=== PATIENT | male | born 1950 | race Caucasian/White ===

== ENCOUNTER 2020-10-04 09:00 | Inpatient (IN) ==
[2020-10-04 09:48] LABS: Albumin 2.8 G/DL (3.4-5.0); Bilirubin,Total 1.1 MG/DL (0.2-1.0); Calcium 8.2 MG/DL (8.5-10.1); Osmolality,Calculated 270.7 MOS/KG (273-304); Potassium 3.6 MMOL/L (3.5-5.1); Total Protein 6.7 G/DL (6.4-8.2)
[2020-10-04 10:09] LABS: Basophils % 0.2 % (0.0-0.8); Eosinophils % 0.1 % (0.00-10.9); Hemoglobin 13.2 GM/DL (14.0-18.0); Immature Granulocytes % 1.4 %; Immature Granulocytes Absolute 0.18 #; Lymphocytes # 1.7 10*3/uL (1.4-4.0); Lymphocytes % 13.2 % (21.2-54.2); Mean Corpuscular HGB Conc 33.8 GM/DL (32-36); Mean Platelet Volume 10.3 FL (9.6-12.0); Neutrophils % 75.1 % (38.7-73.9); Platelet Count 146 T/CUMM (130-400); Red Cell Distribution Width 13.4 % (9.3-17.3); White Blood Count 12.8 T/CUMM (4-12)
[2020-10-04 10:19] LABS: Free T4 (Free Thyroxine) 1.24 NG/DL (0.76-1.46); Thyroid Stimulating Hormone 7.9 uIU/ml (0.358-3.74)
[2020-10-04 10:42] LABS: Bilirubin,Urine Negative (Negative); Blood, Urine Small mg/dL (Negative); Glucose,Urine (UA) >=500 mg/dL (Negative); Hyaline Casts,Urine 4 /LPF (0-3); Ketones,Urine Negative (Negative); Mucus,Urine Occasional /LPF (Occasional); Nitrite,Urine Negative (Negative); Protein,Urine Negative; RBC,Urine 9 /HPF (0-4); Squamous Epithelial Cell,Urine Few /HPF (0-10); Urine Appearance Slightly Hazy (Clear); Urine Color Yellow (Yellow); Urine Specific Gravity 1.012 (1.001-1.035); Urine Urobilinogen < 2.0 EU/DL (0.2-1.0); WBC,Urine 6 /HPF (0-6)
[2020-10-04] MEDS ORDERED: cefTRIAXone 1,000 MG in SODIUM CHLORIDE 0.9% 100 ML IV STA (11:22)
[2020-10-04] MEDS ORDERED: guaiFENesin/DM ER 600-30 MG TABLET PO PRN (11:54)
[2020-10-04] MEDS ORDERED: ACETAMINOPHEN 325 MG TABLET PO PRN (11:54)
[2020-10-04] MEDS ORDERED: ONDANSETRON 4 MG/2 ML VIAL IV PRN (11:54)
[2020-10-04] MEDS ORDERED: GLUCAGON 1 MG VIAL IM PRN (11:54)
[2020-10-04] MEDS ORDERED: DEXTROSE 50% 25 GM/50 ML VIAL IV PRN (11:54)
[2020-10-04] MEDS ORDERED: chlordiazePOXIDE 10 MG CAPSULE PO PRN (12:10)
[2020-10-04] MEDS ORDERED: ENOXAPARIN 40 MG/0.4 ML SYRINGE SUBCUT SCH (12:30)
[2020-10-04 12:32] LABS: Folate 20.2 NG/ML (5.38-24.0)
[2020-10-04] MEDS ORDERED: MAGNESIUM SULF RIDER 2 GM in PREMIX 1 EACH IV PRN (12:56)
[2020-10-04] MEDS ORDERED: MAGNESIUM SULF RIDER 4 GM in PREMIX 1 EACH IV PRN (12:56)
[2020-10-04] MEDS ORDERED: MAGNESIUM SULF RIDER 2 GM in PREMIX 1 EACH IV STA (13:10)
[2020-10-04] MEDS: ALBUTEROL/IPRATROPIUM 3 ML NEB RESP TX SCH (13:50)
[2020-10-04] MEDS: CHOLECALCIFEROL 1,000 UNIT TABLET PO SCH (14:51)
[2020-10-04] MEDS: MULTIVITAMIN (BEROCCA) TABLET PO SCH (14:52)
[2020-10-04] MEDS: THIAMINE 100 MG TABLET PO SCH (14:52)
[2020-10-04] MEDS: FOLIC ACID 1 MG TABLET PO SCH (14:52)
[2020-10-04] MEDS: NICOTINE 21 MG/24 HR PATCH TRANSDERM PRN (14:57)
[2020-10-04] MEDS: SODIUM CHLORIDE 0.9% 1,000 ML IV SCH (15:21)
[2020-10-04] MEDS: INSULIN LISPRO 100 UNIT/ML SUBCUT SCH ×2 (17:14→20:06)
[2020-10-05] MEDS: traZODone 50 MG TABLET PO PRN ×2 (00:12→21:03)
[2020-10-05] MEDS: SODIUM CHLORIDE 0.9% 1,000 ML IV SCH ×3 (00:14→23:31)
[2020-10-05] MEDS: ALBUTEROL/IPRATROPIUM 3 ML NEB RESP TX SCH ×5 (00:28→19:18)
[2020-10-05 05:57] LABS: Basophils % 0.1 % (0.0-0.8); Eosinophils % 0.3 % (0.00-10.9); Hematocrit 36.6 VOL% (42.0-52.0); Hemoglobin 12.1 GM/DL (14.0-18.0); Immature Granulocytes % 1.2 %; Immature Granulocytes Absolute 0.11 #; Lymphocytes # 1.2 10*3/uL (1.4-4.0); Mean Corpuscular HGB Conc 33.1 GM/DL (32-36); Mean Corpuscular Volume 102.5 FL (87-102); Mean Platelet Volume 10.2 FL (9.6-12.0); Monocytes % 9.6 % (1.7-12.7); Neutrophils % 75.8 % (38.7-73.9); Platelet Count 156 T/CUMM (130-400); Red Blood Count 3.57 MC/CUMM (3.8-5.5); Red Cell Distribution Width 13.7 % (9.3-17.3); White Blood Count 8.9 T/CUMM (4-12)
[2020-10-05 06:16] LABS: Hypochromasia Slight; Microcytosis Slight; Platelet Estimate Adequate
[2020-10-05 06:20] LABS: Albumin 2.5 G/DL (3.4-5.0); Bilirubin,Total 0.7 MG/DL (0.2-1.0); Calcium 7.9 MG/DL (8.5-10.1); Osmolality,Calculated 275.1 MOS/KG (273-304); Potassium 3.9 MMOL/L (3.5-5.1); Risk Ratio 10.11; Total Protein 6.2 G/DL (6.4-8.2); VLDL CHOLESTEROL 143.2 MG/DL
[2020-10-05] MEDS ORDERED: ALBUTEROL 2.5 MG/3 ML NEB RESP TX ONE (07:32)
[2020-10-05] MEDS: LEVOTHYROXINE 200 MCG TABLET PO SCH (08:06)
[2020-10-05] MEDS ORDERED: PANTOPRAZOLE 40 MG TABLET PO SCH (09:00)
[2020-10-05] MEDS: INSULIN LISPRO 100 UNIT/ML SUBCUT SCH ×4 (09:40→21:04)
[2020-10-05] MEDS: CHOLECALCIFEROL 1,000 UNIT TABLET PO SCH (09:41)
[2020-10-05] MEDS: ATORVASTATIN 40 MG TABLET PO SCH (09:42)
[2020-10-05] MEDS: FENOFIBRATE 160 MG TABLET PO SCH (09:42)
[2020-10-05] MEDS: THIAMINE 100 MG TABLET PO SCH (09:42)
[2020-10-05] MEDS: MULTIVITAMIN (BEROCCA) TABLET PO SCH (09:42)
[2020-10-05] MEDS: FOLIC ACID 1 MG TABLET PO SCH (09:42)
[2020-10-05] MEDS: methylPREDNISolone SOD SUC 40 MG/1 ML VIAL IV SCH ×3 (09:46→23:32)
[2020-10-05] MEDS ORDERED: SODIUM CHLORIDE 0.9% 1,000 ML IV SCH (10:00)
[2020-10-05] MEDS: AZITHROMYCIN 250 MG TABLET PO SCH (10:04)
[2020-10-05] MEDS: CLOPIDOGREL 75 MG TABLET PO SCH (10:05)
[2020-10-05] MEDS: ASPIRIN EC 81 MG TABLET PO SCH (10:05)
[2020-10-05] MEDS: ENOXAPARIN 100 MG/ML SYRINGE SUBCUT SCH ×2 (11:00→21:04)
[2020-10-05] MEDS: NICOTINE 21 MG/24 HR PATCH TRANSDERM PRN (17:51)
[2020-10-05] MEDS: PANTOPRAZOLE 40 MG TABLET PO SCH (21:03)
[2020-10-06] MEDS: ALBUTEROL/IPRATROPIUM 3 ML NEB RESP TX SCH ×5 (00:45→19:23)
[2020-10-06] MEDS: LEVOTHYROXINE 200 MCG TABLET PO SCH (06:13)
[2020-10-06 07:05] LABS: Basophils % 0.1 % (0.0-0.8); Hematocrit 32.6 VOL% (42.0-52.0); Immature Granulocytes % 1.2 %; Immature Granulocytes Absolute 0.15 #; Lymphocytes # 0.6 10*3/uL (1.4-4.0); Mean Corpuscular HGB Conc 33.7 GM/DL (32-36); Mean Corpuscular Volume 101.6 FL (87-102); Mean Platelet Volume 10.4 FL (9.6-12.0); Monocytes % 3.3 % (1.7-12.7); Neutrophils % 90.4 % (38.7-73.9); Platelet Count 145 T/CUMM (130-400); Red Blood Count 3.21 MC/CUMM (3.8-5.5); Red Cell Distribution Width 13.2 % (9.3-17.3); White Blood Count 12.3 T/CUMM (4-12)
[2020-10-06 07:25] LABS: Albumin 2.6 G/DL (3.4-5.0); Bilirubin,Total 0.6 MG/DL (0.2-1.0); Calcium 7.8 MG/DL (8.5-10.1); Osmolality,Calculated 281.1 MOS/KG (273-304); Potassium 4.3 MMOL/L (3.5-5.1); Total Protein 6.3 G/DL (6.4-8.2)
[2020-10-06] MEDS ORDERED: LORazepam 1 MG TABLET PO PRN (07:49)
[2020-10-06] MEDS ORDERED: FLUCONAZOLE 150 MG TABLET PO ONE (09:05)
[2020-10-06] MEDS: THIAMINE 100 MG TABLET PO SCH (10:17)
[2020-10-06] MEDS: LORazepam 1 MG TABLET PO SCH ×3 (10:17→21:12)
[2020-10-06] MEDS: CHOLECALCIFEROL 1,000 UNIT TABLET PO SCH (10:18)
[2020-10-06] MEDS: ATORVASTATIN 40 MG TABLET PO SCH (10:18)
[2020-10-06] MEDS: MULTIVITAMIN (BEROCCA) TABLET PO SCH (10:18)
[2020-10-06] MEDS: PANTOPRAZOLE 40 MG TABLET PO SCH ×2 (10:18→21:12)
[2020-10-06] MEDS: CLOPIDOGREL 75 MG TABLET PO SCH (10:18)
[2020-10-06] MEDS: FENOFIBRATE 160 MG TABLET PO SCH (10:19)
[2020-10-06] MEDS: AZITHROMYCIN 250 MG TABLET PO SCH (10:19)
[2020-10-06] MEDS: ASPIRIN EC 81 MG TABLET PO SCH (10:20)
[2020-10-06] MEDS: FOLIC ACID 1 MG TABLET PO SCH (10:20)
[2020-10-06] MEDS: INSULIN LISPRO 100 UNIT/ML SUBCUT SCH ×4 (10:23→21:12)
[2020-10-06] MEDS: methylPREDNISolone SOD SUC 40 MG/1 ML VIAL IV SCH ×3 (10:25→21:12)
[2020-10-06] MEDS: ENOXAPARIN 100 MG/ML SYRINGE SUBCUT SCH (10:27)
[2020-10-06] MEDS: PIPERACILLIN/TAZOBACTAM 3,375 MG in SODIUM CHLORIDE 0.9% 100 ML IV SCH ×2 (10:48→17:15)
[2020-10-06] MEDS: CLOTRIMAZOLE 1% CREAM 15 GM TUBE TOP SCH ×2 (12:12→21:22)
[2020-10-06] MEDS ORDERED: FUROSEMIDE 40 MG/4 ML VIAL IV ONE (13:32)
[2020-10-06] MEDS ORDERED: FUROSEMIDE 20 MG/2 ML VIAL IV ONE (13:51)
[2020-10-06] MEDS: traZODone 50 MG TABLET PO PRN (21:15)
[2020-10-06] MEDS: NICOTINE 21 MG/24 HR PATCH TRANSDERM PRN (21:18)
[2020-10-07] MEDS: ALBUTEROL/IPRATROPIUM 3 ML NEB RESP TX SCH ×4 (00:15→10:36)
[2020-10-07] MEDS: PIPERACILLIN/TAZOBACTAM 3,375 MG in SODIUM CHLORIDE 0.9% 100 ML IV SCH ×2 (01:48→09:36)
[2020-10-07] MEDS: LEVOTHYROXINE 200 MCG TABLET PO SCH (06:02)
[2020-10-07 06:10] LABS: Basophils % 0.1 % (0.0-0.8); Hematocrit 31.2 VOL% (42.0-52.0); Hemoglobin 10.8 GM/DL (14.0-18.0); Immature Granulocytes % 2.2 %; Immature Granulocytes Absolute 0.33 #; Lymphocytes # 0.6 10*3/uL (1.4-4.0); Lymphocytes % 3.9 % (21.2-54.2); Mean Corpuscular HGB Conc 34.6 GM/DL (32-36); Mean Corpuscular Volume 99.7 FL (87-102); Mean Platelet Volume 10.2 FL (9.6-12.0); Monocytes % 3.6 % (1.7-12.7); Neutrophils % 90.2 % (38.7-73.9); Platelet Count 150 T/CUMM (130-400); Red Blood Count 3.13 MC/CUMM (3.8-5.5); Red Cell Distribution Width 13.2 % (9.3-17.3); White Blood Count 14.9 T/CUMM (4-12)
[2020-10-07 06:33] LABS: Hypochromasia Slight; Lymphocytes 5 % (20-55); Segmented Neutrophils 95 % (50-85); Total Cells Counted 100
[2020-10-07 06:34] LABS: Microcytosis Slight; Platelet Estimate Adequate; Potassium 4.5 MMOL/L (3.5-5.1)
[2020-10-07] MEDS ORDERED: AZITHROMYCIN 250 MG TABLET PO SCH (09:00)
[2020-10-07] MEDS: ASPIRIN EC 81 MG TABLET PO SCH (09:33)
[2020-10-07] MEDS: PANTOPRAZOLE 40 MG TABLET PO SCH (09:33)
[2020-10-07] MEDS: THIAMINE 100 MG TABLET PO SCH (09:33)
[2020-10-07] MEDS: FENOFIBRATE 160 MG TABLET PO SCH (09:33)
[2020-10-07] MEDS: CHOLECALCIFEROL 1,000 UNIT TABLET PO SCH (09:33)
[2020-10-07] MEDS: MULTIVITAMIN (BEROCCA) TABLET PO SCH (09:33)
[2020-10-07] MEDS: LORazepam 1 MG TABLET PO SCH (09:33)
[2020-10-07] MEDS: methylPREDNISolone SOD SUC 40 MG/1 ML VIAL IV SCH (09:34)
[2020-10-07] MEDS: CLOPIDOGREL 75 MG TABLET PO SCH (09:34)
[2020-10-07] MEDS: ATORVASTATIN 40 MG TABLET PO SCH (09:34)
[2020-10-07] MEDS: INSULIN LISPRO 100 UNIT/ML SUBCUT SCH ×2 (09:35→12:27)
[2020-10-07] MEDS: FOLIC ACID 1 MG TABLET PO SCH (09:36)
[2020-10-07] MEDS: CLOTRIMAZOLE 1% CREAM 15 GM TUBE TOP SCH (09:46)
[2020-10-07] MEDS ORDERED: INSULIN GLARGINE 100 UNIT/ML SUBCUT SCH (10:04)
[2020-10-07 11:56] VITALS: BP 145/94
[2020-10-08] MEDS ORDERED: NON-FORMULARY MEDICATION (Magnesium 500 mg Tablet) PO SCH (09:00)
== END 2020-10-07 13:36 | disposition home or self-care (01) | DRG 194 ==
LOC: N.EDINP 09:00 → N.ED 09:00 → N.EDINP 13:44 → N.TELEN 14:20 → SUATTDRO 10-06 10:57
PROVIDERS: ADMIT Internal Medicine; ATTEND Family Medicine

== ENCOUNTER 2020-11-02 16:47 | Inpatient (IN) ==
[2020-11-02 17:45] LABS: Basophils % 0.3 % (0.0-0.8); Eosinophils % 0.7 % (0.00-10.9); Hematocrit 35.2 VOL% (42.0-52.0); Hemoglobin 11.6 GM/DL (14.0-18.0); Immature Granulocytes % 0.8 %; Immature Granulocytes Absolute 0.05 #; Lymphocytes # 1.2 10*3/uL (1.4-4.0); Lymphocytes % 19.2 % (21.2-54.2); Mean Platelet Volume 9.7 FL (9.6-12.0); Monocytes % 13.7 % (1.7-12.7); Neutrophils % 65.3 % (38.7-73.9); Platelet Count 239 T/CUMM (130-400); Red Blood Count 3.45 MC/CUMM (3.8-5.5); Red Cell Distribution Width 15.9 % (9.3-17.3)
[2020-11-02] MEDS ORDERED: ALBUTEROL/IPRATROPIUM 3 ML NEB RESP TX STA (17:45)
[2020-11-02 18:01] LABS: Albumin 3.1 G/DL (3.4-5.0); Bilirubin,Total 0.5 MG/DL (0.2-1.0); Calcium 9.4 MG/DL (8.5-10.1); Osmolality,Calculated 275.7 MOS/KG (273-304); Potassium 3.8 MMOL/L (3.5-5.1); Total Protein 6.4 G/DL (6.4-8.2)
[2020-11-02 18:05] LABS: INR 1.1; PT Patient Result 12.7 SECS (10.5-12.0)
[2020-11-02] MEDS ORDERED: FUROSEMIDE 40 MG/4 ML VIAL IV STA (18:35)
[2020-11-02] MEDS ORDERED: MAGNESIUM SULF RIDER 2 GM/50 ML PREMIX IV STA (19:06)
[2020-11-02] MEDS ORDERED: LORazepam 1 MG TABLET PO PRN (20:49)
[2020-11-02] MEDS ORDERED: GLUCAGON 1 MG VIAL IM PRN (20:51)
[2020-11-02] MEDS ORDERED: DEXTROSE 50% 25 GM/50 ML VIAL IV PRN (20:51)
[2020-11-02] MEDS ORDERED: ACETAMINOPHEN 325 MG TABLET PO PRN (20:52)
[2020-11-02] MEDS ORDERED: ALBUTEROL 2.5 MG/3 ML NEB RESP TX PRN (20:52)
[2020-11-02] MEDS ORDERED: ONDANSETRON 4 MG/2 ML VIAL IV PRN (20:52)
[2020-11-02] MEDS ORDERED: DOCUSATE SODIUM 100 MG CAPSULE PO PRN (20:52)
[2020-11-02] MEDS ORDERED: MORPHINE 4 MG/1 ML VIAL IV PRN (20:52)
[2020-11-02] MEDS ORDERED: MAGNESIUM SULF RIDER 2 GM/50 ML PREMIX IV ONE (20:56)
[2020-11-02] MEDS ORDERED: POTASSIUM CHLORIDE 20 MEQ TABLET PO PRN (21:01)
[2020-11-02] MEDS ORDERED: MAGNESIUM SULF RIDER 4 GM/100 ML PREMIX IV PRN (21:01)
[2020-11-02] MEDS ORDERED: MAGNESIUM SULF RIDER 2 GM/50 ML PREMIX IV PRN (21:01)
[2020-11-02] MEDS ORDERED: LORazepam 2 MG/1 ML VIAL IV PRN (21:32)
[2020-11-02] MEDS ORDERED: NITROGLYCERIN SL 0.4 MG TABLET SL PRN (22:35)
[2020-11-02] MEDS: VANCOMYCIN INJ 1,750 MG in SODIUM CHLORIDE 0.9% 500 ML IV SCH (22:40)
[2020-11-02] MEDS: LORazepam 1 MG TABLET PO SCH (22:41)
[2020-11-02] MEDS: NICOTINE 21 MG/24 HR PATCH TRANSDERM SCH (22:41)
[2020-11-02] MEDS: ALBUTEROL/IPRATROPIUM 3 ML NEB RESP TX SCH (23:40)
[2020-11-03] MEDS: ENOXAPARIN 40 MG/0.4 ML SYRINGE SUBCUT SCH ×2 (00:02→21:00)
[2020-11-03] MEDS: methylPREDNISolone SOD SUC 40 MG/1 ML VIAL IV SCH ×3 (00:06→17:33)
[2020-11-03] MEDS: INSULIN LISPRO 100 UNIT/ML SUBCUT SCH ×5 (00:08→21:00)
[2020-11-03] MEDS: LEVOFLOXACIN INJ 750 MG/150 ML PREMIX IV SCH (01:40)
[2020-11-03] MEDS: ALBUTEROL/IPRATROPIUM 3 ML NEB RESP TX SCH ×6 (02:37→22:45)
[2020-11-03] MEDS: PIPERACILLIN/TAZOBACTAM 3,375 MG in SODIUM CHLORIDE 0.9% 100 ML IV SCH ×3 (03:13→17:32)
[2020-11-03 06:02] LABS: Basophils % 0.2 % (0.0-0.8); Hematocrit 35.8 VOL% (42.0-52.0); Hemoglobin 11.7 GM/DL (14.0-18.0); Immature Granulocytes % 1.3 %; Immature Granulocytes Absolute 0.07 #; Lymphocytes # 0.5 10*3/uL (1.4-4.0); Lymphocytes % 8.7 % (21.2-54.2); Mean Corpuscular HGB Conc 32.7 GM/DL (32-36); Mean Corpuscular Volume 104.1 FL (87-102); Mean Platelet Volume 9.7 FL (9.6-12.0); Monocytes % 3.1 % (1.7-12.7); Neutrophils % 86.7 % (38.7-73.9); Platelet Count 210 T/CUMM (130-400); Red Blood Count 3.44 MC/CUMM (3.8-5.5); Red Cell Distribution Width 15.9 % (9.3-17.3); White Blood Count 5.2 T/CUMM (4-12)
[2020-11-03 06:37] LABS: Calcium 8.9 MG/DL (8.5-10.1); Osmolality,Calculated 279.7 MOS/KG (273-304); Potassium 4.5 MMOL/L (3.5-5.1); Thyroid Stimulating Hormone 1.24 uIU/ml (0.358-3.74)
[2020-11-03] MEDS ORDERED: LEVOTHYROXINE 200 MCG TABLET PO SCH (07:00)
[2020-11-03] MEDS ORDERED: METOPROLOL SUCCINATE XL 25 MG TABLET PO SCH (09:00)
[2020-11-03] MEDS: POTASSIUM CHLORIDE 20 MEQ TABLET PO SCH (09:37)
[2020-11-03] MEDS: FENOFIBRATE 160 MG TABLET PO SCH (09:37)
[2020-11-03] MEDS: MULTIVITAMIN (BEROCCA) TABLET PO SCH (09:37)
[2020-11-03] MEDS: CHOLECALCIFEROL 1,000 UNIT TABLET PO SCH (09:37)
[2020-11-03] MEDS: MAGNESIUM OXIDE 400 MG TABLET PO SCH ×3 (09:37→21:00)
[2020-11-03] MEDS: CLOPIDOGREL 75 MG TABLET PO SCH (09:37)
[2020-11-03] MEDS: ASPIRIN EC 81 MG TABLET PO SCH (09:37)
[2020-11-03] MEDS: NICOTINE 21 MG/24 HR PATCH TRANSDERM SCH (09:38)
[2020-11-03] MEDS: PANTOPRAZOLE 40 MG TABLET PO SCH (09:38)
[2020-11-03] MEDS: THIAMINE 100 MG TABLET PO SCH (09:38)
[2020-11-03] MEDS: LORazepam 1 MG TABLET PO SCH ×3 (09:38→21:00)
[2020-11-03] MEDS ORDERED: FUROSEMIDE 40 MG/4 ML VIAL IV SCH (10:00)
[2020-11-03] MEDS ORDERED: METOPROLOL SUCCINATE XL 25 MG TABLET PO ONE (11:03)
[2020-11-03] MEDS: FOLIC ACID 0.4 MG TABLET PO SCH (12:32)
[2020-11-03] MEDS: VANCOMYCIN INJ 1,750 MG in SODIUM CHLORIDE 0.9% 500 ML IV SCH ×2 (14:00→22:28)
[2020-11-03] MEDS: ATORVASTATIN 40 MG TABLET PO SCH (21:00)
[2020-11-04] MEDS: methylPREDNISolone SOD SUC 40 MG/1 ML VIAL IV SCH ×3 (00:55→17:30)
[2020-11-04] MEDS: LEVOFLOXACIN INJ 750 MG/150 ML PREMIX IV SCH (00:57)
[2020-11-04] MEDS: ALBUTEROL/IPRATROPIUM 3 ML NEB RESP TX SCH ×5 (02:49→23:45)
[2020-11-04] MEDS: PIPERACILLIN/TAZOBACTAM 3,375 MG in SODIUM CHLORIDE 0.9% 100 ML IV SCH ×3 (03:05→17:30)
[2020-11-04 06:26] LABS: Basophils % 0.1 % (0.0-0.8); Hematocrit 31.5 VOL% (42.0-52.0); Hemoglobin 10.4 GM/DL (14.0-18.0); Immature Granulocytes % 1.5 %; Immature Granulocytes Absolute 0.11 #; Lymphocytes # 0.5 10*3/uL (1.4-4.0); Lymphocytes % 6.4 % (21.2-54.2); Mean Corpuscular Volume 102.9 FL (87-102); Mean Platelet Volume 9.6 FL (9.6-12.0); Monocytes % 4.9 % (1.7-12.7); Neutrophils % 87.1 % (38.7-73.9); Platelet Count 205 T/CUMM (130-400); Red Blood Count 3.06 MC/CUMM (3.8-5.5); Red Cell Distribution Width 15.8 % (9.3-17.3); White Blood Count 7.4 T/CUMM (4-12)
[2020-11-04 06:44] LABS: Calcium 8.4 MG/DL (8.5-10.1); Potassium 4.5 MMOL/L (3.5-5.1)
[2020-11-04] MEDS ORDERED: PROMETHAZINE 25 MG/1 ML VIAL IM ONE (07:00)
[2020-11-04] MEDS ORDERED: MEPERIDINE 50 MG/1 ML VIAL IM ONE (07:00)
[2020-11-04] MEDS ORDERED: LIDOCAINE 2% 20 ML VIAL RESP TX ONE (07:30)
[2020-11-04] MEDS ORDERED: LIDOCAINE 1% 20 ML VIAL MISC INJ ONE (07:30)
[2020-11-04] MEDS ORDERED: MIDAZOLAM 2 MG/2 ML VIAL IV ONE (07:30)
[2020-11-04] MEDS ORDERED: LIDOCAINE 2% VISCOUS 100 ML BOTTLE SWISH/SPIT ONE (07:30)
[2020-11-04] MEDS ORDERED: METOPROLOL SUCCINATE XL 50 MG TABLET PO SCH (09:00)
[2020-11-04] MEDS: INSULIN LISPRO 100 UNIT/ML SUBCUT SCH ×4 (10:45→20:58)
[2020-11-04] MEDS: NICOTINE 21 MG/24 HR PATCH TRANSDERM SCH (11:03)
[2020-11-04] MEDS: MULTIVITAMIN (BEROCCA) TABLET PO SCH (11:04)
[2020-11-04] MEDS: ASPIRIN EC 81 MG TABLET PO SCH (11:04)
[2020-11-04] MEDS: PANTOPRAZOLE 40 MG TABLET PO SCH (11:04)
[2020-11-04] MEDS: MAGNESIUM OXIDE 400 MG TABLET PO SCH ×3 (11:04→20:53)
[2020-11-04] MEDS: LEVOTHYROXINE 200 MCG TABLET PO SCH (11:04)
[2020-11-04] MEDS: FENOFIBRATE 160 MG TABLET PO SCH (11:04)
[2020-11-04] MEDS: LORazepam 1 MG TABLET PO SCH ×3 (11:04→20:53)
[2020-11-04] MEDS: FOLIC ACID 0.4 MG TABLET PO SCH (11:04)
[2020-11-04] MEDS: CHOLECALCIFEROL 1,000 UNIT TABLET PO SCH (11:04)
[2020-11-04] MEDS: CLOPIDOGREL 75 MG TABLET PO SCH (11:05)
[2020-11-04] MEDS: THIAMINE 100 MG TABLET PO SCH (11:05)
[2020-11-04] MEDS: METOPROLOL SUCCINATE XL 25 MG TABLET PO SCH (11:05)
[2020-11-04] MEDS: POTASSIUM CHLORIDE 20 MEQ TABLET PO SCH (11:05)
[2020-11-04 12:40] LABS: Anti SS-A Antibodies < 16 EU/ML
[2020-11-04] MEDS: VANCOMYCIN INJ 1,750 MG in SODIUM CHLORIDE 0.9% 500 ML IV SCH ×2 (15:05→22:51)
[2020-11-04] MEDS: ATORVASTATIN 40 MG TABLET PO SCH (20:53)
[2020-11-04] MEDS: ENOXAPARIN 40 MG/0.4 ML SYRINGE SUBCUT SCH (20:56)
[2020-11-05] MEDS: LEVOFLOXACIN INJ 750 MG/150 ML PREMIX IV SCH (00:35)
[2020-11-05] MEDS: methylPREDNISolone SOD SUC 40 MG/1 ML VIAL IV SCH ×3 (00:35→15:42)
[2020-11-05] MEDS: ALBUTEROL/IPRATROPIUM 3 ML NEB RESP TX SCH ×6 (03:05→23:55)
[2020-11-05] MEDS: PIPERACILLIN/TAZOBACTAM 3,375 MG in SODIUM CHLORIDE 0.9% 100 ML IV SCH ×3 (03:27→18:13)
[2020-11-05] MEDS: LEVOTHYROXINE 200 MCG TABLET PO SCH (05:44)
[2020-11-05 06:02] LABS: Basophils % 0.1 % (0.0-0.8); Hematocrit 32.5 VOL% (42.0-52.0); Hemoglobin 10.7 GM/DL (14.0-18.0); Immature Granulocytes % 1.3 %; Immature Granulocytes Absolute 0.12 #; Lymphocytes # 0.4 10*3/uL (1.4-4.0); Lymphocytes % 4.6 % (21.2-54.2); Mean Corpuscular HGB Conc 32.9 GM/DL (32-36); Mean Corpuscular Volume 104.5 FL (87-102); Mean Platelet Volume 9.9 FL (9.6-12.0); Monocytes % 5.5 % (1.7-12.7); Neutrophils % 88.5 % (38.7-73.9); Platelet Count 212 T/CUMM (130-400); Red Blood Count 3.11 MC/CUMM (3.8-5.5); Red Cell Distribution Width 15.7 % (9.3-17.3)
[2020-11-05 06:10] LABS: Calcium 8.6 MG/DL (8.5-10.1); Osmolality,Calculated 281.8 MOS/KG (273-304); Potassium 5.3 MMOL/L (3.5-5.1)
[2020-11-05 07:31] LABS: Band Neutrophils 1 % (0-10); Lymphocytes 7 % (20-55); Segmented Neutrophils 88 % (50-85); Total Cells Counted 100
[2020-11-05 07:32] LABS: Hypochromasia Slight
[2020-11-05 07:33] LABS: Microcytosis 1+; Platelet Estimate Normal
[2020-11-05] MEDS: METOPROLOL SUCCINATE XL 25 MG TABLET PO SCH (08:53)
[2020-11-05] MEDS: CLOPIDOGREL 75 MG TABLET PO SCH (08:53)
[2020-11-05] MEDS: ASPIRIN EC 81 MG TABLET PO SCH (08:53)
[2020-11-05] MEDS: MAGNESIUM OXIDE 400 MG TABLET PO SCH ×3 (08:53→20:52)
[2020-11-05] MEDS: FENOFIBRATE 160 MG TABLET PO SCH (08:53)
[2020-11-05] MEDS: CHOLECALCIFEROL 1,000 UNIT TABLET PO SCH (08:53)
[2020-11-05] MEDS: FOLIC ACID 1 MG TABLET PO SCH (08:53)
[2020-11-05] MEDS: THIAMINE 100 MG TABLET PO SCH (08:53)
[2020-11-05] MEDS: PANTOPRAZOLE 40 MG TABLET PO SCH (08:53)
[2020-11-05] MEDS: MULTIVITAMIN (BEROCCA) TABLET PO SCH (08:53)
[2020-11-05] MEDS: LORazepam 1 MG TABLET PO SCH ×3 (08:53→20:52)
[2020-11-05] MEDS: POTASSIUM CHLORIDE 20 MEQ TABLET PO SCH (08:53)
[2020-11-05] MEDS: NICOTINE 21 MG/24 HR PATCH TRANSDERM SCH (08:54)
[2020-11-05] MEDS: INSULIN LISPRO 100 UNIT/ML SUBCUT SCH ×4 (10:54→20:53)
[2020-11-05] MEDS: FUROSEMIDE 20 MG/2 ML VIAL IV SCH (11:13)
[2020-11-05] MEDS: VANCOMYCIN INJ 1,750 MG in SODIUM CHLORIDE 0.9% 500 ML IV SCH (16:00)
[2020-11-05] MEDS: ATORVASTATIN 40 MG TABLET PO SCH (20:52)
[2020-11-05] MEDS: ENOXAPARIN 40 MG/0.4 ML SYRINGE SUBCUT SCH (20:55)
[2020-11-06] MEDS: LEVOFLOXACIN INJ 750 MG/150 ML PREMIX IV SCH (00:11)
[2020-11-06] MEDS: methylPREDNISolone SOD SUC 40 MG/1 ML VIAL IV SCH ×3 (00:11→15:47)
[2020-11-06] MEDS: PIPERACILLIN/TAZOBACTAM 3,375 MG in SODIUM CHLORIDE 0.9% 100 ML IV SCH ×3 (03:14→18:19)
[2020-11-06] MEDS: ALBUTEROL/IPRATROPIUM 3 ML NEB RESP TX SCH ×6 (03:29→23:50)
[2020-11-06 05:26] LABS: Basophils % 0.1 % (0.0-0.8); Hematocrit 33.9 VOL% (42.0-52.0); Immature Granulocytes Absolute 0.08 #; Lymphocytes # 0.4 10*3/uL (1.4-4.0); Lymphocytes % 4.6 % (21.2-54.2); Mean Corpuscular HGB Conc 32.4 GM/DL (32-36); Monocytes % 6.6 % (1.7-12.7); Neutrophils % 87.7 % (38.7-73.9); Platelet Count 196 T/CUMM (130-400); Red Blood Count 3.23 MC/CUMM (3.8-5.5); Red Cell Distribution Width 15.2 % (9.3-17.3); White Blood Count 8.2 T/CUMM (4-12)
[2020-11-06] MEDS: LEVOTHYROXINE 200 MCG TABLET PO SCH (05:45)
[2020-11-06 06:00] LABS: Calcium 9.2 MG/DL (8.5-10.1); Potassium 5.2 MMOL/L (3.5-5.1)
[2020-11-06 06:18] LABS: Hypochromasia Slight; Lymphocytes 3 % (20-55); Microcytosis 1+; Platelet Estimate Adequate; Segmented Neutrophils 87 % (50-85); Total Cells Counted 100
[2020-11-06] MEDS: MULTIVITAMIN (BEROCCA) TABLET PO SCH (09:12)
[2020-11-06] MEDS: INSULIN LISPRO 100 UNIT/ML SUBCUT SCH ×4 (09:12→20:45)
[2020-11-06] MEDS: NICOTINE 21 MG/24 HR PATCH TRANSDERM SCH (09:12)
[2020-11-06] MEDS: ASPIRIN EC 81 MG TABLET PO SCH (09:12)
[2020-11-06] MEDS: MAGNESIUM OXIDE 400 MG TABLET PO SCH ×3 (09:12→20:45)
[2020-11-06] MEDS: INSULIN GLARGINE 100 UNIT/ML SUBCUT SCH (09:12)
[2020-11-06] MEDS: PANTOPRAZOLE 40 MG TABLET PO SCH (09:13)
[2020-11-06] MEDS: THIAMINE 100 MG TABLET PO SCH (09:13)
[2020-11-06] MEDS: LORazepam 1 MG TABLET PO SCH ×3 (09:13→20:45)
[2020-11-06] MEDS: FOLIC ACID 1 MG TABLET PO SCH (09:13)
[2020-11-06] MEDS: FUROSEMIDE 20 MG/2 ML VIAL IV SCH (09:13)
[2020-11-06] MEDS: CHOLECALCIFEROL 1,000 UNIT TABLET PO SCH (09:13)
[2020-11-06] MEDS: CLOPIDOGREL 75 MG TABLET PO SCH (09:13)
[2020-11-06] MEDS: FENOFIBRATE 160 MG TABLET PO SCH (09:13)
[2020-11-06] MEDS: METOPROLOL SUCCINATE XL 25 MG TABLET PO SCH (09:13)
[2020-11-06] MEDS: VANCOMYCIN INJ 1,750 MG in SODIUM CHLORIDE 0.9% 500 ML IV SCH (13:58)
[2020-11-06] MEDS: ATORVASTATIN 40 MG TABLET PO SCH (20:45)
[2020-11-06] MEDS: ENOXAPARIN 40 MG/0.4 ML SYRINGE SUBCUT SCH (20:45)
[2020-11-07] MEDS: methylPREDNISolone SOD SUC 40 MG/1 ML VIAL IV SCH ×3 (00:34→21:35)
[2020-11-07] MEDS: LEVOFLOXACIN INJ 750 MG/150 ML PREMIX IV SCH ×2 (00:34→23:38)
[2020-11-07] MEDS: PIPERACILLIN/TAZOBACTAM 3,375 MG in SODIUM CHLORIDE 0.9% 100 ML IV SCH ×3 (02:07→17:11)
[2020-11-07] MEDS: ALBUTEROL/IPRATROPIUM 3 ML NEB RESP TX SCH ×5 (03:21→19:20)
[2020-11-07 05:53] LABS: Basophils % 0.1 % (0.0-0.8); Hematocrit 35.6 VOL% (42.0-52.0); Hemoglobin 12.1 GM/DL (14.0-18.0); Immature Granulocytes % 1.4 %; Immature Granulocytes Absolute 0.11 #; Lymphocytes # 0.5 10*3/uL (1.4-4.0); Lymphocytes % 6.1 % (21.2-54.2); Mean Corpuscular Volume 100.6 FL (87-102); Mean Platelet Volume 10.2 FL (9.6-12.0); Monocytes % 7.7 % (1.7-12.7); Neutrophils % 84.7 % (38.7-73.9); Platelet Count 209 T/CUMM (130-400); Red Blood Count 3.54 MC/CUMM (3.8-5.5); Red Cell Distribution Width 14.9 % (9.3-17.3); White Blood Count 7.7 T/CUMM (4-12)
[2020-11-07] MEDS: VANCOMYCIN INJ 1,750 MG in SODIUM CHLORIDE 0.9% 500 ML IV SCH (05:55)
[2020-11-07] MEDS: LEVOTHYROXINE 200 MCG TABLET PO SCH (05:55)
[2020-11-07 06:10] LABS: Calcium 9.6 MG/DL (8.5-10.1); Osmolality,Calculated 279.1 MOS/KG (273-304); Potassium 4.8 MMOL/L (3.5-5.1)
[2020-11-07] MEDS: INSULIN LISPRO 100 UNIT/ML SUBCUT SCH ×4 (08:24→21:35)
[2020-11-07] MEDS: INSULIN GLARGINE 100 UNIT/ML SUBCUT SCH (08:25)
[2020-11-07] MEDS: ASPIRIN EC 81 MG TABLET PO SCH (08:26)
[2020-11-07] MEDS: CHOLECALCIFEROL 1,000 UNIT TABLET PO SCH (08:26)
[2020-11-07] MEDS: FOLIC ACID 1 MG TABLET PO SCH (08:26)
[2020-11-07] MEDS: FUROSEMIDE 20 MG/2 ML VIAL IV SCH (08:26)
[2020-11-07] MEDS: MAGNESIUM OXIDE 400 MG TABLET PO SCH ×3 (08:26→21:34)
[2020-11-07] MEDS: FENOFIBRATE 160 MG TABLET PO SCH (08:26)
[2020-11-07] MEDS: NICOTINE 21 MG/24 HR PATCH TRANSDERM SCH (08:26)
[2020-11-07] MEDS: MULTIVITAMIN (BEROCCA) TABLET PO SCH (08:26)
[2020-11-07] MEDS: THIAMINE 100 MG TABLET PO SCH (08:27)
[2020-11-07] MEDS: METOPROLOL SUCCINATE XL 25 MG TABLET PO SCH (08:27)
[2020-11-07] MEDS: CLOPIDOGREL 75 MG TABLET PO SCH (08:27)
[2020-11-07] MEDS: PANTOPRAZOLE 40 MG TABLET PO SCH (08:27)
[2020-11-07] MEDS: LORazepam 1 MG TABLET PO SCH ×3 (08:27→21:35)
[2020-11-07] MEDS ORDERED: METOPROLOL SUCCINATE XL 25 MG TABLET PO ONE (12:45)
[2020-11-07 12:51] LABS: Antinuclear Ab, S 0.3 U
[2020-11-07] MEDS: ATORVASTATIN 40 MG TABLET PO SCH (21:35)
[2020-11-07] MEDS: ENOXAPARIN 40 MG/0.4 ML SYRINGE SUBCUT SCH (21:35)
[2020-11-07] MEDS ORDERED: VANCOMYCIN INJ 1,750 MG in SODIUM CHLORIDE 0.9% 500 ML IV SCH (23:00)
[2020-11-08] MEDS: ALBUTEROL/IPRATROPIUM 3 ML NEB RESP TX SCH ×4 (00:14→10:45)
[2020-11-08] MEDS: PIPERACILLIN/TAZOBACTAM 3,375 MG in SODIUM CHLORIDE 0.9% 100 ML IV SCH ×2 (02:40→11:24)
[2020-11-08 05:52] LABS: Basophils % 0.2 % (0.0-0.8); Hematocrit 37.7 VOL% (42.0-52.0); Hemoglobin 12.8 GM/DL (14.0-18.0); Immature Granulocytes % 1.7 %; Immature Granulocytes Absolute 0.14 #; Lymphocytes # 0.5 10*3/uL (1.4-4.0); Lymphocytes % 5.6 % (21.2-54.2); Mean Corpuscular Volume 99.5 FL (87-102); Mean Platelet Volume 10.1 FL (9.6-12.0); Monocytes % 8.5 % (1.7-12.7); NRBC # 0.02 10*3/uL; Platelet Count 199 T/CUMM (130-400); Red Blood Count 3.79 MC/CUMM (3.8-5.5); Red Cell Distribution Width 14.6 % (9.3-17.3); White Blood Count 8.1 T/CUMM (4-12)
[2020-11-08 06:12] LABS: Calcium 9.5 MG/DL (8.5-10.1); Osmolality,Calculated 278.2 MOS/KG (273-304); Potassium 4.6 MMOL/L (3.5-5.1)
[2020-11-08] MEDS: LEVOTHYROXINE 200 MCG TABLET PO SCH (06:20)
[2020-11-08] MEDS ORDERED: FUROSEMIDE 40 MG TABLET PO SCH (09:00)
[2020-11-08] MEDS ORDERED: INSULIN GLARGINE 100 UNIT/ML SUBCUT SCH (09:00)
[2020-11-08] MEDS ORDERED: METOPROLOL SUCCINATE XL 50 MG TABLET PO SCH (09:00)
[2020-11-08] MEDS: MAGNESIUM OXIDE 400 MG TABLET PO SCH (09:35)
[2020-11-08] MEDS: CHOLECALCIFEROL 1,000 UNIT TABLET PO SCH (09:36)
[2020-11-08] MEDS: PANTOPRAZOLE 40 MG TABLET PO SCH (09:37)
[2020-11-08] MEDS: MULTIVITAMIN (BEROCCA) TABLET PO SCH (09:37)
[2020-11-08] MEDS: FOLIC ACID 1 MG TABLET PO SCH (09:37)
[2020-11-08] MEDS: FENOFIBRATE 160 MG TABLET PO SCH (09:37)
[2020-11-08] MEDS: CLOPIDOGREL 75 MG TABLET PO SCH (09:38)
[2020-11-08] MEDS: ASPIRIN EC 81 MG TABLET PO SCH (09:38)
[2020-11-08] MEDS: THIAMINE 100 MG TABLET PO SCH (09:38)
[2020-11-08] MEDS: LORazepam 1 MG TABLET PO SCH (09:38)
[2020-11-08] MEDS: INSULIN LISPRO 100 UNIT/ML SUBCUT SCH ×2 (09:40→12:33)
[2020-11-08] MEDS: NICOTINE 21 MG/24 HR PATCH TRANSDERM SCH (09:41)
[2020-11-08] MEDS: methylPREDNISolone SOD SUC 40 MG/1 ML VIAL IV SCH (09:43)
[2020-11-08 11:30] VITALS: BP 142/84
== END 2020-11-08 14:50 | disposition home or self-care (01) | DRG 190 ==
LOC: N.ED 16:47 → N.EDINP 20:45 → SUATTDRO 20:45 → N.3E 22:04
PROVIDERS: ADMIT Internal Medicine; ATTEND Internal Medicine

== ENCOUNTER 2020-11-20 23:53 | Inpatient (IN) ==
[2020-11-21] MEDS ORDERED: ONDANSETRON 4 MG/2 ML VIAL IV PRN (02:15)
[2020-11-21] MEDS ORDERED: LACTULOSE 20 GM/30 ML UDCUP PO PRN (02:15)
[2020-11-21] MEDS ORDERED: DEXTROSE 50% 25 GM/50 ML VIAL IV PRN (02:15)
[2020-11-21] MEDS ORDERED: ACETAMINOPHEN 325 MG TABLET PO PRN (02:15)
[2020-11-21] MEDS ORDERED: GLUCAGON 1 MG VIAL IM PRN (02:15)
[2020-11-21] MEDS: methylPREDNISolone SOD SUC 40 MG/1 ML VIAL IV SCH ×2 (02:47→16:26)
[2020-11-21] MEDS: ENOXAPARIN 40 MG/0.4 ML SYRINGE SUBCUT SCH (02:48)
[2020-11-21 03:21] LABS: Albumin 3.2 G/DL (3.4-5.0); Bilirubin,Total 0.6 MG/DL (0.2-1.0); Calcium 8.8 MG/DL (8.5-10.1); Osmolality,Calculated 288.1 MOS/KG (273-304); Potassium 4.1 MMOL/L (3.5-5.1); Thyroid Stimulating Hormone 0.267 uIU/ml (0.358-3.74); Total Protein 5.8 G/DL (6.4-8.2)
[2020-11-21] MEDS: ALBUTEROL/IPRATROPIUM 3 ML NEB RESP TX PRN ×2 (03:47→14:00)
[2020-11-21] MEDS: cefTRIAXone 1,000 MG in SODIUM CHLORIDE 0.9% 100 ML IV SCH (03:49)
[2020-11-21] MEDS: INSULIN LISPRO 100 UNIT/ML SUBCUT SCH ×4 (08:58→20:47)
[2020-11-21] MEDS: PANTOPRAZOLE 40 MG TABLET PO SCH (08:59)
[2020-11-21] MEDS: ASPIRIN CHEW 81 MG TABLET PO SCH (08:59)
[2020-11-21] MEDS: CLOPIDOGREL 75 MG TABLET PO SCH (08:59)
[2020-11-21] MEDS: LEVOTHYROXINE 150 MCG TABLET PO SCH (08:59)
[2020-11-21] MEDS: NYSTATIN 500,000 UNIT/5 ML UDCUP SWISH/SWAL SCH ×4 (08:59→20:48)
[2020-11-21] MEDS: ATORVASTATIN 40 MG TABLET PO SCH (08:59)
[2020-11-21] MEDS: FOLIC ACID 1 MG TABLET PO SCH (08:59)
[2020-11-21] MEDS: DOXYCYCLINE MONOHYDRATE SUSP 5 MG/ML 60 ML/BOTTLE PO SCH ×2 (09:00→20:47)
[2020-11-21] MEDS: BUDESONIDE/FORMOTEROL 160-4.5 INHALER 6 GM INH SCH ×2 (09:00→20:51)
[2020-11-21] MEDS: THIAMINE 200 MG/2 ML VIAL IM SCH (09:00)
[2020-11-21] MEDS: LORazepam 2 MG/1 ML VIAL IV PRN ×2 (09:00→20:48)
[2020-11-21] MEDS ORDERED: MAGNESIUM SULF RIDER 2 GM/50 ML PREMIX IV PRN (10:07)
[2020-11-21] MEDS ORDERED: MAGNESIUM SULF RIDER 4 GM/100 ML PREMIX IV PRN (10:07)
[2020-11-21] MEDS ORDERED: NITROGLYCERIN SL 0.4 MG TABLET SL PRN (13:15)
[2020-11-21] MEDS: ALBUTEROL/IPRATROPIUM 3 ML NEB RESP TX SCH ×2 (14:00→19:05)
[2020-11-21 16:16] LABS: ABG Base Excess 3.2 MMOL/L (-2.5-2.5); ABG HCO3 27.2 MMOL/L (20-26); ABG PCO2 37.3 MM HG (35-48); ABG PH 7.465 (7.35-7.45); ABG PO2 87.4 MM HG (80-95); ABG TCO2 23.3 MMOL/L (23-27)
[2020-11-21] MEDS: NICOTINE 21 MG/24 HR PATCH TRANSDERM SCH (16:26)
[2020-11-21] MEDS: METOPROLOL SUCCINATE XL 50 MG TABLET PO SCH (16:26)
[2020-11-22] MEDS: ALBUTEROL/IPRATROPIUM 3 ML NEB RESP TX SCH ×3 (01:02→13:07)
[2020-11-22] MEDS: cefTRIAXone 1,000 MG in SODIUM CHLORIDE 0.9% 100 ML IV SCH (03:09)
[2020-11-22] MEDS: ENOXAPARIN 40 MG/0.4 ML SYRINGE SUBCUT SCH (03:09)
[2020-11-22] MEDS: methylPREDNISolone SOD SUC 40 MG/1 ML VIAL IV SCH (03:09)
[2020-11-22 04:40] LABS: Basophils % 0.1 % (0.0-0.8); Hematocrit 38.3 VOL% (42.0-52.0); Hemoglobin 12.6 GM/DL (14.0-18.0); Immature Granulocytes % 1.8 %; Immature Granulocytes Absolute 0.24 #; Lymphocytes # 0.6 10*3/uL (1.4-4.0); Lymphocytes % 4.2 % (21.2-54.2); Mean Corpuscular HGB Conc 32.9 GM/DL (32-36); Mean Corpuscular Volume 102.4 FL (87-102); Monocytes % 2.6 % (1.7-12.7); Neutrophils % 91.3 % (38.7-73.9); Platelet Count 101 T/CUMM (130-400); Red Blood Count 3.74 MC/CUMM (3.8-5.5); White Blood Count 13.7 T/CUMM (4-12)
[2020-11-22 04:51] LABS: Calcium 8.6 MG/DL (8.5-10.1); Osmolality,Calculated 286.8 MOS/KG (273-304); Potassium 4.1 MMOL/L (3.5-5.1)
[2020-11-22 05:07] LABS: Free T4 (Free Thyroxine) 1.19 NG/DL (0.76-1.46)
[2020-11-22 05:12] LABS: Band Neutrophils 1 % (0-10); Lymphocytes 2 % (20-55); Platelet Estimate Decreased; Segmented Neutrophils 97 % (50-85); Total Cells Counted 100
[2020-11-22] MEDS: LEVOTHYROXINE 150 MCG TABLET PO SCH (08:37)
[2020-11-22] MEDS: INSULIN LISPRO 100 UNIT/ML SUBCUT SCH ×2 (08:37→12:13)
[2020-11-22] MEDS: ASPIRIN CHEW 81 MG TABLET PO SCH (08:37)
[2020-11-22] MEDS: METOPROLOL SUCCINATE XL 50 MG TABLET PO SCH (08:38)
[2020-11-22] MEDS: CLOPIDOGREL 75 MG TABLET PO SCH (08:38)
[2020-11-22] MEDS: ATORVASTATIN 40 MG TABLET PO SCH (08:38)
[2020-11-22] MEDS: NYSTATIN 500,000 UNIT/5 ML UDCUP SWISH/SWAL SCH (08:38)
[2020-11-22] MEDS: NICOTINE 21 MG/24 HR PATCH TRANSDERM SCH (08:38)
[2020-11-22] MEDS: FOLIC ACID 1 MG TABLET PO SCH (08:38)
[2020-11-22] MEDS: PANTOPRAZOLE 40 MG TABLET PO SCH (08:38)
[2020-11-22] MEDS: LORazepam 2 MG/1 ML VIAL IV PRN (08:38)
[2020-11-22] MEDS: THIAMINE 200 MG/2 ML VIAL IM SCH (08:39)
[2020-11-22] MEDS: BUDESONIDE/FORMOTEROL 160-4.5 INHALER 6 GM INH SCH (08:39)
[2020-11-22] MEDS ORDERED: FENOFIBRATE 160 MG TABLET PO SCH (09:00)
[2020-11-22] MEDS: DOXYCYCLINE MONOHYDRATE SUSP 5 MG/ML 60 ML/BOTTLE PO SCH (09:45)
[2020-11-22 11:59] VITALS: BP 144/88
== END 2020-11-22 14:53 | disposition home health service (06) | DRG 190 ==
LOC: N.TELEN → SUATTDRO 11-21 01:36
PROVIDERS: ADMIT Internal Medicine; ATTEND Internal Medicine